=== PATIENT | male | born 1970 | race Caucasian/White ===

== ENCOUNTER 2017-08-26 13:14 | Outpatient (CLI) | payer OTHER ==
[~2017-08-26 13:14] MED LIST: CRESTOR5 MG
== END 2017-08-26 13:17 | disposition home or self-care (01) ==
LOC: SONOGRAMA 13:14 → MAMO-SONO 13:15 → SONOGRAMA 13:17
DX: M12.9 Arthropathy, unspecified (principal); M19.90 Unspecified osteoarthritis, unspecified site

== ENCOUNTER 2025-02-08 08:00 | Inpatient (IN) | payer OTHER ==
[~2025-02-08] VITALS: Ht 170.2 cm; Wt 117.9 kg
[2025-02-08 09:17] LABS: BASO % 0.7 % (0.1-1.2); EOS # 0.35 (0.04-0.54); EOS % 3.6 % (0.7-7.0); LYMPH # 2.20 (1.18-3.74); LYMPH % 22.4 % (19.3-53.1); MEAN PLATELET VOLUME 10.90 fl (9.4-12.4); MONO # 0.93 (0.24-0.82); MONO % 9.5 % (4.7-12.5); NEUT # 6.26 (1.56-6.13); NEUT % 63.5 % (34.0-71.1); RED CELL DISTRIBUTION WIDTH 12.8 % (11.6-14.4)
[2025-02-08] MEDS ORDERED: ZOCOR40 MG PO (09:29)
[2025-02-08] MEDS ORDERED: ACID REDUCER20 M1 PO (09:30)
[2025-02-08] MEDS ORDERED: HYZAAR 100-251 EACH PO (09:30)
[2025-02-08] MEDS ORDERED: NORVASC5 MG PO (09:30)
[2025-02-08] MEDS ORDERED: PEPCID AC10 MG PO (09:30)
[2025-02-08 09:31] VITALS: BP 156/86
[2025-02-08 09:38] LABS: INR 0.98
[2025-02-08 09:42] LABS: URINE APPEARANCE Clear; URINE BILIRRUBIN Negative (NEGATIVE); URINE BLOOD Negative; URINE COLOR Yellow; URINE GLUCOSE Negative (NEGATIVE); URINE KETONE Negative (NEGATIVE); URINE LEUKOCYTE Negative; URINE NITRATE Negative; URINE PROTEIN Negative (NEGATIVE); URINE UROBILINOGEN 1.0 E.U./dl
[2025-02-08 10:00] LABS: URINE BACTERIA 3.5 uL (0.0-1933); URINE CAST 0.00 uL (0.0-1.40); URINE EPITHELIAL CELLS 0.1 uL (0.0-38.8); URINE RBC 1.9 uL (0.0-20.8); URINE WBC 0.1 uL (0.0-23.2)
[2025-02-08 10:15] LABS: BUN CREA RATIO 11.0 (7.0-25.0); CREATININE SERUM 1.0 mg/dL (0.70-1.30); GFR 78.47; GLUCOSE FASTING 100.0 mg/dL (65-100)
[2025-02-08 10:16] LABS: BILIRUBIN TOTAL 1.1 mg/dL (0.3-1.2); CHOL HDL RATIO 3.2 (0-5.0); GLOBULINA 4.1 G/DL (2.4-3.5); HDL 47.0 mg/dl (40-60); LDL 88.0 mg/dl (0-130); OSMOLALITY SERUM 284.0 MOSM/KG (275-295); VLDL 14.0 (0-39)
[2025-02-08 10:17] LABS: ALT/SGPT 28.0 U/L (12-78); AST/SGOT 17.0 U/L (15-37)
[2025-02-08 11:30] LABS: RH POSITIVE
[2025-02-09 14:03] LABS: COVID-19 AG NEGATIVE (NEGATIVE)
[2025-02-16] MEDS ORDERED: CEFAZOLIN SODIUM 1,000 MG VIAL IV ONE (11:45)
[2025-02-16] MEDS ORDERED: BUPIVACAINE HCL 30 ML VIAL IJ ONE (12:00)
[2025-02-16] MEDS ORDERED: TRANEXAMIC ACID 100MG/1ML (1000MG) AMPUL IV ONE ×2 (12:00)
[2025-02-16] MEDS ORDERED: KETOROLAC TROMETHAMINE 60 MG VIAL IM ONE (12:00)
[2025-02-16] MEDS ORDERED: MORPHINE SULFATE 4 MG/ML VIAL IV ONE ×2 (12:00→17:30)
[2025-02-16] MEDS ORDERED: LIDOCAINE HCL 1%/EPINEPHRINE 20ML VIAL IJ ONE (12:00)
[2025-02-16] MEDS ORDERED: MORPHINE SULFATE 4 MG/ML CARTRIDGE IV PRN (15:30)
[2025-02-16] MEDS ORDERED: SODIUM CHLORIDE 0.45 % 1,000 ML IV SCH (15:30)
[2025-02-16] MEDS ORDERED: ONDANSETRON HCL 2 MG/ML VIAL IV PRN (15:30)
[2025-02-16] MEDS ORDERED: OxyCODONE HCL 5 MG TABLET (ROXICODONE) PO PRN (15:30)
[2025-02-16] MEDS ORDERED: GABAPENTIN 300 MG CAPSULE PO SCH (17:00)
[2025-02-16] MEDS ORDERED: CEFAZOLIN SODIUM 1,000 MG VIAL IV SCH (17:00)
[2025-02-16] MEDS ORDERED: ACETAMINOPHEN 500 MG GEL..CAP PO SCH (18:00)
[2025-02-16] MEDS ORDERED: ENALAPRILAT DIHYDRATE 1.25 MG/ML VIAL IV PRN (20:00)
[2025-02-17 01:14] VITALS: BP 110/68; O2SAT 95
[2025-02-17 07:07] LABS: BASO % 0.4 % (0.1-1.2); EOS # 0.04 (0.04-0.54); EOS % 0.4 % (0.7-7.0); LYMPH # 1.33 (1.18-3.74); LYMPH % 11.8 % (19.3-53.1); MEAN PLATELET VOLUME 11.10 fl (9.4-12.4); MONO # 1.51 (0.24-0.82); NEUT # 8.28 (1.56-6.13); NEUT % 73.7 % (34.0-71.1); RED CELL DISTRIBUTION WIDTH 12.7 % (11.6-14.4)
[2025-02-17 07:39] LABS: MONO % 13.4 % (4.7-12.5)
[2025-02-17] MEDS ORDERED: SENNOSIDES 1 TAB TABLET PO SCH (09:00)
[2025-02-17] MEDS ORDERED: LOSARTAN/HYDROCHLOROTHIAZIDE 1 UDTAB TABLET PO SCH (09:00)
[2025-02-17] MEDS ORDERED: AMLODIPINE BESYLATE 5 MG TABLET PO SCH (09:00)
[2025-02-17] MEDS ORDERED: APIXABAN 2.5 MG TABLET PO SCH (09:00)
[2025-02-17] MEDS ORDERED: Cyanocobalamin/Mecobalamin 1 TAB.SL SL SCH (13:04)
[2025-02-17] MEDS ORDERED: SOD FERRIC GLUC COMPLX/SUCROSE 62.5 MG/5 ML AMPUL IV SCH (13:04)
[2025-02-17 17:00] VITALS: BP 145/76; O2SAT 99
[2025-02-18 03:47] VITALS: BP 158/73; O2SAT 98
[2025-02-18 08:00] VITALS: BP 116/89; O2SAT 95
[2025-02-18 08:47] LABS: BASO % 0.3 % (0.1-1.2); EOS # 0.01 (0.04-0.54); EOS % 0.1 % (0.7-7.0); LYMPH # 1.19 (1.18-3.74); LYMPH % 7.7 % (19.3-53.1); MEAN PLATELET VOLUME 11.40 fl (9.4-12.4); MONO # 2.03 (0.24-0.82); NEUT # 12.09 (1.56-6.13); NEUT % 78.2 % (34.0-71.1); RED CELL DISTRIBUTION WIDTH 12.6 % (11.6-14.4)
[2025-02-18 09:00] LABS: MONO % 13.1 % (4.7-12.5)
[2025-02-18] MEDS ORDERED: IRON FUM,PS/FOLIC ACID/VITC/B3 1 CAP CAPSULE PO SCH (09:00)
[2025-02-18 13:53] LABS: COVID-19 AG NEGATIVE (NEGATIVE)
[2025-02-18 16:00] VITALS: BP 125/70; O2SAT 97
[2025-02-19 01:38] VITALS: BP 150/68; O2SAT 98
[2025-02-19] MEDS ORDERED: PERCOCET 5-3251 EACH PO (07:30)
[2025-02-19] MEDS ORDERED: ELIQUIS2.5 MG PO (07:30)
[2025-02-19] MEDS ORDERED: CEFADROXIL500 MG PO (07:30)
== END 2025-02-19 11:56 | DRG 470 ==
LOC: SURH 02-16 07:00 → SURG 02-16 08:00 → O/R 02-16 08:00 → SURH 02-16 08:00 → SURG 02-16 19:13
PROVIDERS: ADMIT Orthopaedic Surgery; ATTEND Orthopaedic Surgery
PROC: 0MNN0ZZ Release Right Knee Bursa and Ligament, Open Approach (ICD-10-PCS; 2025-02-16)
PROC: 0SRC0J9 Replacement of Right Knee Joint with Synthetic Substitute, Cemented, Open Approach (ICD-10-PCS; principal; 2025-02-16 07:00)
DX: M17.11 Unilateral primary osteoarthritis, right knee (principal); D62 Acute posthemorrhagic anemia; M22.11 Recurrent subluxation of patella, right knee; G47.33 Obstructive sleep apnea (adult) (pediatric)